=== PATIENT | male | born 1965 | race Caucasian/White ===

== ENCOUNTER 2023-03-19 00:25 | Day surgery (SDC) | payer OTHER, SELFPAY ==
[2023-03-12 08:55] VITALS: BMI 27.6
--- NOTE | 2023-03-12 16:50 | PC.NURSE ---
Report to the Outpatient Waiting Room, entrance under the green pavilion located off [facility], at time __0600 on date ___03/19/23____. Planned Procedure Time: ___729 . Time changes happen often and if your time is changed the preop area will call you the afternoon before. - You and your visitor will be asked to self-screen and do not enter if you have any COVID symptoms. - A mask is optional within the hospital at this time. Patients may have clear liquids (water, carbonated beverages, clear teas, apple juice) until 3 hours prior to surgery with a maximum of 20 ounces. - No food from midnight until time of surgery - Infants may have breast milk until 4 hours before surgery, formula 6 hours prior to surgery. - Children will be allowed to drink immediately following surgery. If applicable, please bring a bottle or sippy cup to assist with drinking. Juice, water, soda, and popsicles are readily available. For infants on formula, please bring formula the day of surgery. Pacifiers are allowed. Take the following medications with a SIP of water the morning of surgery: Levothyroxine DO NOT STOP ANY OF YOUR OTHER PRESCRIPTION MEDICATIONS PRIOR TO SURGERY ?EXCEPT THE FOLLOWING Medications to discontinue per physician __N/A Date to take last dose Please no make-up, nail bulgarian, hairspray, perfume, deodorant, or body powder the day of surgery. No jewelry (including any body piercings) or valuables the day of surgery, leave them at home. Please take a shower or bath the night before, or the morning of, surgery with an antibacterial soap. Wear comfortable, loose fitting clothing. Children are encouraged to wear pajamas. - Jewelry must be removed prior to entering the operating room. Rings and piercings that are not removed may be cut off. - The hospital will not accept responsibility for valuables. - Please leave all valuables, including medications, at home the day of surgery. If you are going home after surgery, a licensed regional refrigerated cdl truck driver must drive you home. - NO public transportation without another adult if you receive anesthesia. - We recommend that an adult stay with you for 24 hours following discharge. - We also recommend that you do not drive, make important decision, drink alcoholic beverages, or take any drugs that were not prescribed by your health care provider for at least 24 hours after your discharge time. For Pediatric surgeries, we recommend two adults accompany the child home. Follow any additional instructions given to you from your surgeon. If you or anyone in your household have experienced Covid symptoms in the past week, please notify your surgeon or the nurse liaison at the phone number below for possible testing. Telephone instructions given to ___Cornelius Banks and asked if any additional questions and then verbalized understanding. Patient advised to call surgeon office or pre surgery nurse liaison [phone] if any additional questions.
[2023-03-19] VITALS (7 sets, daily range): BP systolic 99–120; BP diastolic 66–85; PULSE 59–77; RESP 10–20; TEMP 36.2–36.6; O2SAT 98–100; BMI 27.4
--- NOTE | 2023-03-19 06:39 | P.PNAN_ITS ---
Anes - Initial Pre Proc Eval Procedure: Operation Date: 03/19/23 07:30 Proposed Procedures p Cystoscopy - Maurice Ayers MD Date/Time: 03/19/23 06:39 Surgeon: Maurice Ayers MD Pre Op Diagnosis: gross hematuria Patient Data Age: 57 Gender: M Height: 1.75 m Weight: 84.82 kg Allergies Allergy/AdvReac Type Severity Reaction Status Date / Time oxycodone AdvReac Other Verified 03/19/23 06:26 Home Medications Medication Instructions Recorded Confirmed Type levothyroxine 150 mcg tablet 150 mcg PO DAILY 03/12/23 03/19/23 History Patient hx anesthesia problems: none Family hx anesthesia problems: none Results Review: All pre-operative results and documents have been reviewed as part of the pre- operative evaluation. [facility] Past Medical History Medical History (Updated 03/19/23 @ 06:40 by Rohit Fernández MD) Hearing aid worn History of pulmonary embolism Surgical History Surgical History (Updated 03/19/23 @ 06:40 by Rohit Fernández MD) History of ankle surgery S/P cervical spinal fusion Social History Social History Smoking status: Never smoker Alcohol use details: once a month rarely Substance use: never Living arrangements: with family Spiritual care concerns: No Anes - Eval Final PreProcedure Day of Procedure 03/19/23 06:39 Patient weight: overweight Heart: regular rate and rhythm Lungs: clear to auscultation Airway: Mallampati scale (upper partial) class II Neurological: alert and oriented Last oral intake: >/= 8 hours ASA classification: II Emergent: no Anesthetic plan: proceed Anesthesia type and monitoring: general LMA and standard monitoring Results Review: All pre-operative results and documents have been reviewed as part of the pre- operative evaluation. Informed Consent: The patient's anesthetic plan and its attendant risks and benefits were discussed with the patient/family/POA. Questions were solicited and answers provided to the satisfaction of the patient/family/POA.
[2023-03-19] MEDS: LACTATED RINGERS 1,000 ML 30 ML IV CONT (06:50)
--- NOTE | 2023-03-19 07:27 | PM.IMHP ---
H&P: HPI History of Present Illness Date/Time: 03/19/23 07:27 Chief Complaint: LUTS- lower urinary tract symptoms Narrative: 57 yr old male with LUTS. Could not tolerate scope in office. Review of Systems Review of Systems: All systems reviewed & are unremarkable except as noted in HPI and below PMFSH Past Medical History Medical History Hearing aid worn History of pulmonary embolism Surgical History Surgical History History of ankle surgery S/P cervical spinal fusion Social History Social History Smoking status: Never smoker Alcohol use details: once a month rarely Substance use: never Living arrangements: with family Spiritual care concerns: No Meds Home Medications and Allergies Home Medications Medication Instructions Recorded Confirmed Type levothyroxine 150 mcg tablet 150 mcg PO DAILY 03/12/23 03/19/23 History Allergies Allergy/AdvReac Type Severity Reaction Status Date / Time oxycodone AdvReac Other Verified 03/19/23 06:26 Exam Const: General: cooperative and comfortable Eyes: General: appearance normal, both eyes and all related structures Neck: Neck: normal visual inspection Chest: Chest palpation & inspection: normal inspection of the chest Resp: Effort & Inspection: normal respiratory effort Cardio: Rate: regular rate Rhythm: regular rhythm GI: Inspection: normal to inspection Assessment and Plan Assessment and plan (1) Lower urinary tract symptoms (LUTS): Code(s): R39.9 - Unspecified symptoms and signs involving the genitourinary system Status: Acute Assessment and Plan: proceed with cystoscopy
--- NOTE | 2023-03-19 07:29 | WPDHPUPDATE1 ---
History and Physical Update Update Date/Time: 03/19/23 07:29 History and Physical has been reviewed, including an updated exam of the patient. There are NO changes in the patient's condition. Risks, benefits, and alternatives have been discussed and questions answered. Patient agrees to proceed with procedure.
[2023-03-19] MEDS: ceFAZolin 2 GM/D5W 50 ML 2 GM/50 ML BAG IVPB (07:34)
--- NOTE | 2023-03-19 08:03 | P.OP_ITS ---
Procedure Note - Detailed Date of Procedure 03/19/23 Pre-op Diagnosis luts Post-op Diagnosis Same Procedure Performed Cystoscopy, bladder biopsy, fulguration Surgeon Maurice Ayers MD Anesthesia General Description of Procedure Patient is taken to the operative suite correctly identified. Once anesthesia was obtained was placed in dorsal lithotomy position and prepped and draped usual sterile fashion. Twenty B[place] scope was inserted the bladder direct vision. There was no urethral strictures. External sphincter was intact. Prostate does not appear obstructive in nature he does have a slightly elevated bladder neck. Upon entering the bladder both ureteral orifices are normal in anatomic position. There were no bladder tumors noted. He does have some erythema and some scarring along the posterior wall on the left almost consistent with prior resection or biopsy. He does not give any of that history. At this point time a biopsy was done of this area with the erythematous lesions fulgurated. 2% viscous lidocaine was inserted into the urethra patient is taken recovery stable condition. Patient is to call for path results in 1 week. This completes dictation. Please send a copy of this op note to my office Estimated Blood Loss 0 Drains No Packing No Pathology Yes Complications No immediate complications Condition Stable Disposition PACU
[2023-03-19] MEDS: LIDOCAINE HCL 2% GEL UROJET 10 ML PKG MUCOUS MEM (08:09)
== END 2023-03-19 09:28 | disposition home or self-care (01) ==
PROVIDERS: Visit Provider Urology
PROC: 0TBB8ZX Excision of Bladder, Via Natural or Artificial Opening Endoscopic, Diagnostic (ICD-10-PCS; CPT 52204; principal; 2023-03-19 07:30)
DX: R31.0 Gross hematuria (principal); N30.20 Other chronic cystitis without hematuria; Z98.1 Arthrodesis status; Z86.711 Personal history of pulmonary embolism
CPT/HCPCS: 52204; 88305; J0690; J2250; J2405; J2704; J3010; J7120